=== PATIENT | male | born 1995 | race Hispanic/Latino ===

== ENCOUNTER 2019-03-07 16:56 | Emergency (ER) | payer OTHER, SELFPAY ==
[2019-03-07] MEDS ORDERED: FAMOTIDINE 20 MG/2 ML VIAL IV ONE (18:03)
[2019-03-07 18:10] LABS: Absolute Lymphocytes (CBC) 1.4 K/uL (0.7-4.9); Absolute Monocytes 0.8 K/uL (0.1-1.3); Basophils % 0.8 % (0-1.3); Eosinophils % 3.2 % (0-4.4); Hematocrit 43.2 % (39.6-49.0); MPV 10.4 fL (7.6-11.3); RBC Red Blood Cell Count 5.01 M/uL (4.33-5.43)
[2019-03-07] MEDS ORDERED: MORPHINE 4 MG/ML SYR ONE ×2 (18:16→19:30)
[2019-03-07] MEDS ORDERED: ONDANSETRON 4 MG/2 ML VIAL ONE (18:16)
[2019-03-07 18:34] LABS: ALT/SGPT 67 U/L (12-78); AST/SGOT 31 U/L (15-37); Alkaline Phosphatase 133 U/L (45-117); BUN Blood Urea Nitrogen 16 mg/dL (7-18); Bicarbonate 27 mmol/L (21-32); Bilirubin Direct 0.2 mg/dL (0-0.2); Bilirubin Total 1.1 mg/dL (0.2-1.0); Glucose Level 91 mg/dL (74-106); Lipase 85 U/L (73-393); Potassium 3.6 mmol/L (3.5-5.1); Protein, Total 7.9 g/dL (6.4-8.2); Sodium Level 140 mmol/L (136-145)
--- NOTE | 2019-03-07 19:57 | RAD REPORT ---
EXAM DESCRIPTION: US - Abdomen Exam Limited - 03/07/2019 7:19 pm CLINICAL HISTORY: Abdominal pain, epigastric pain COMPARISON: None. FINDINGS: No gallstones, sludge or other abnormalities within the gallbladder lumen. There is no wal l thickening or pericholecystic fluid. No common duct stone or biliary tree dilatation identified. Liver is probably fatty infiltrated but is not fully assessed. IMPRESSION: Normal gallbladder and biliary tree ultrasound. Suspected fatty infiltration. Liver is not fully assessed.
[2019-03-07 20:23] LABS: Urine Blood NEGATIVE (NEG); Urine Glucose NEGATIVE (NEG); Urine Protein NEGATIVE (NEG)
--- NOTE | 2019-03-07 20:45 | RAD REPORT ---
EXAM DESCRIPTION: CT - Abdomen Pelvis W Contrast - 03/07/2019 8:01 pm CLINICAL HISTORY: Abdominal pain, epigastric pain COMPARISON: None. TECHNIQUE: Biphasic, helical CT imaging of the abdomen and pelvis was performed following 100 ml non -ionic IV contrast. No oral contrast. All CT scans are performed using dose optimization technique as appropriate and may include automated exposure control or mA/KV adjustment according to patient size. FINDINGS: No suspicious findings in the lung bases. Liver shows a mild diffuse fatty infiltration pattern. No focal liver lesion. Spleen and pancreas silke w no suspicious findings. Gallbladder and biliary tree are also without suspicious finding. Gallstone s can be occult on CT imaging. Symmetric renal function is seen with no hydronephrosis or suspicious renal mass. No pyelonephritis o r acute parenchymal process. No bladder abnormalities. No adrenal abnormalities. No dilated bowel loops or bowel wall thickening. No appendicitis. No free air, free fluid or inflamma tory stranding. No hernia, mass or bulky lymphadenopathy. No suspicious bony findings. IMPRESSION: Contrast enhanced CT abdomen and pelvis showing no acute finding. Mild fatty infiltration of the liver.
--- NOTE | 2019-03-07 20:49 | EDPHYS ---
Physician Documentation [facility] Name: Holden Jovel Age: 24 yrs Sex: Male : 1995 Arrival Date: 03/07/2019 Time: 16:57 Bed 20 Private MD: ED Physician Domenic Silverio HPI: 03/07 20:22 This 24 yrs old Male presents to ER via Ambulatory with complaints of pm1 Epigastric Pain. 20:22 The patient presents with abdominal pain in the epigastric area. Onset: The pm1 symptoms/episode began/occurred yesterday. The symptoms do not radiate. Associated signs and symptoms: none. Pertinent negatives: nausea, vomiting, and diarrhea, chest pain, dysuria, fever, shortness of breath. The symptoms are described as achy, burning. Modifying factors: The symptoms are alleviated by nothing, the symptoms are aggravated by nothing. Severity of pain: in the emergency department the pain is actually worse. The patient has not experienced similar symptoms in the past. The patient has not recently seen a physician. Historical: - Allergies: 17:23 No Known Allergies; aj1 - Home Meds: 17:23 None [Active]; aj1 - PMHx: 17:23 None; aj1 - PSHx: 17:23 None; aj1 - Immunization history:: Flu vaccine is not up to date. - Social history:: Smoking status: Patient/guardian denies using tobacco. - Ebola Screening: : Patient denies travel to an Ebola-affected area in the 21 days before illness onset. ROS: 20:22 Constitutional: Negative for fever, chills, and weight loss, Eyes: Negative for injury, pm1 pain, redness, and discharge, ENT: Negative for injury, pain, and discharge, Neck: Negative for injury, pain, and swelling, Cardiovascular: Negative for chest pain, palpitations, and edema, Respiratory: Negative for shortness of breath, cough, wheezing, and pleuritic chest pain. 20:22 Back: Negative for injury and pain, : Negative for injury, bleeding, discharge, and swelling, MS/Extremity: Negative for injury and deformity, Skin: Negative for injury, rash, and discoloration, Neuro: Negative for headache, weakness, numbness, tingling, and seizure. 20:22 Abdomen/GI: Positive for abdominal pain, Negative for nausea, vomiting, and diarrhea. Exam: 20:22 Constitutional: This is a well developed, well nourished patient who is awake, alert, pm1 and in no acute distress. Head/Face: Normocephalic, atraumatic. Eyes: Pupils equal round and reactive to light, extra-ocular motions intact. Lids and lashes normal. Conjunctiva and sclera are non-icteric and not injected. Cornea within normal limits. Periorbital areas with no swelling, redness, or edema. ENT: Nares patent. No nasal discharge, no septal abnormalities noted. Tympanic membranes are normal and external auditory canals are clear. Oropharynx with no redness, swelling, or masses, exudates, or evidence of obstruction, uvula midline. Mucous membranes moist. Neck: Trachea midline, no thyromegaly or masses palpated, and no cervical lymphadenopathy. Supple, full range of motion without nuchal rigidity, or vertebral point tenderness. No Meningismus. Chest/axilla: Normal chest wall appearance and motion. Nontender with no deformity. No lesions are appreciated. Cardiovascular: Regular rate and rhythm with a normal S1 and S2. No gallops, murmurs, or rubs. Normal PMI, no JVD. No pulse deficits. Respiratory: Lungs have equal breath sounds bilaterally, clear to auscultation and percussion. No rales, rhonchi or wheezes noted. No increased work of breathing, no retractions or nasal flaring. 20:22 Back: No spinal tenderness. No costovertebral tenderness. Full range of motion. Skin: Warm, dry with normal turgor. Normal color with no rashes, no lesions, and no evidence of cellulitis. MS/ Extremity: Pulses equal, no cyanosis. Neurovascular intact. Full, normal range of motion. 20:22 Abdomen/GI: Inspection: obese Bowel sounds: normal, Palpation: soft, mild abdominal tenderness, in the epigastric area, mass, is not appreciated, rebound tenderness, is not appreciated. 20:22 Neuro: Orientation: is normal, Motor: is normal, Sensation: is normal, no obvious gross deficits. Vital Signs: 17:23 BP 149 / 76; Pulse 92; Resp 18; Temp 98.7; Pulse Ox 98% on R/A; Weight 140.61 kg (R); aj1 Height 5 ft. 9 in. (175.26 cm) (R); Pain 10/10; 18:04 BP 136 / 76; Pulse 80; Resp 18; Pulse Ox 97% on R/A; Pain 10/10; em 19:25 BP 130 / 74; Pulse 70; Resp 17 S; Pulse Ox 97% on R/A; cc3 20:25 BP 132 / 77; Pulse 75; Resp 17 S; Pulse Ox 97% on R/A; cc3 21:14 BP 128 / 73; Pulse 79; Resp 18 S; Pulse Ox 98% on R/A; cc3 17:23 Body Mass Index 45.78 (140.61 kg, 175.26 cm) aj1 MDM: 17:28 Patient medically screened. pm1 20:24 Data reviewed: vital signs. Data interpreted: Pulse oximetry: on room air is 97 %. pm1 Interpretation: normal. 20:47 Counseling: I had a detailed discussion with the patient and/or guardian regarding: the pm1 historical points, exam findings, and any diagnostic results supporting the discharge/admit diagnosis, lab results, radiology results, the need for outpatient follow up, to return to the emergency department if symptoms worsen or persist or if there are any questions or concerns that arise at home. 03/07 17:40 Order name: Basic Metabolic Panel; Complete Time: 18:44 pm1 03/07 17:40 Order name: CBC with Diff; Complete Time: 18:44 pm1 03/07 17:40 Order name: Creatinine for Radiology; Complete Time: 18:44 pm1 03/07 17:40 Order name: Hepatic Function; Complete Time: 18:44 pm1 03/07 17:40 Order name: Lipase; Complete Time: 18:44 pm1 03/07 20:20 Order name: Urine Dipstick--Ancillary (enter results); Complete Time: 20:24 mw2 03/07 17:40 Order name: IV Saline Lock; Complete Time: 18:02 pm1 03/07 17:40 Order name: US Abdomen Limited; Complete Time: 20:03 pm1 03/07 19:17 Order name: CT Abd/Pelvis - W/Contrast: Iv contrast only; Complete Time: 20:47 pm1 03/07 17:40 Order name: Labs collected and sent; Complete Time: 18:02 pm1 Administered Medications: 18:10 Drug: Pepcid 20 mg Route: IVP; Site: right antecubital; ss 18:54 Follow up: Response: No adverse reaction em 18:11 Drug: Zofran 4 mg Route: IVP; Site: right antecubital; ss 18:55 Follow up: Response: No adverse reaction em 18:13 Drug: morphine 4 mg Route: IVP; Site: right antecubital; ss 18:54 Follow up: Response: No adverse reaction; Pain is unchanged, physician notified em 19:20 Drug: morphine 4 mg Route: IVP; Site: right antecubital; cc3 20:09 Follow up: Response: No adverse reaction; Pain is unchanged, physician notified cc3 21:00 Drug: GI Cocktail without - (Maalox Suspension 30 ml, Lidocaine Liquid 2 % 15 cc3 ml) Route: PO; 21:15 Follow up: Response: No adverse reaction; Pain is decreased cc3 Disposition: 03/08 06:50 Co-signature as Attending Physician, Domenic Silverio MD I agree with the assessment and beryl plan of care. Disposition: 03/07/19 20:48 Discharged to Home. Impression: Unspecified abdominal pain. - Condition is Stable. - Discharge Instructions: Abdominal Pain, Adult. - Prescriptions for Pepcid 20 mg Oral Tablet - take 1 tablet by ORAL route every 12 hours for 10 days; 20 tablet. - Medication Reconciliation Form, Thank You Letter, Antibiotic Education, Prescription Opioid Use form. - Follow up: Emergency Department; When: As needed; Reason: Worsening of condition. Follow up: Private Physician; When: 2 - 3 days; Reason: Recheck today's complaints, Continuance of care, Re-evaluation by your physician. - Problem is new. - Symptoms have improved. Signatures: Dispatcher [employer] Vesta Trinidad RN RN ajDomenic Valentine MD MD cha Smirch, Shelby, RN RN Kiet Schaefer, ASP NET MVC DEVELOPER ASP NET MVC DEVELOPER pm1 Phuong Ratliff cc3 Ilan Morris TELEVISION ANNOUNCER em Corrections: (The following items were deleted from the chart) 03/07 21:15 20:48 03/07/2019 20:48 Discharged to Home. Impression: Unspecified abdominal pain. cc3 Condition is Stable. Forms are Medication Reconciliation Form, Thank You Letter, Antibiotic Education, Prescription Opioid Use. Follow up: Emergency Department; When: As needed; Reason: Worsening of condition. Follow up: Private Physician; When: 2 - 3 days; Reason: Recheck today's complaints, Continuance of care, Re-evaluation by your physician. Problem is new. Symptoms have improved. pm1
--- NOTE | 2019-03-07 20:49 | ER ---
Nurse's Notes [facility] Name: Holden Jovel Age: 24 yrs Sex: Male : 1995 Arrival Date: 03/07/2019 Time: 16:57 Bed 20 Private MD: Diagnosis: Unspecified abdominal pain Presentation: 03/07 17:21 Presenting complaint: Patient states: epigastric pain that's worse when he takes a deep aj1 breath. Reports he has had this pain since early Friday morning. Denies N/V/D. Denies fever. Transition of care: patient was not received from another setting of care. Onset of symptoms was March 06, 2019. Risk Assessment: Do you want to hurt yourself or someone else? Patient reports no desire to harm self or others. Initial Sepsis Screen: Does the patient meet any 2 criteria? HR > 90 bpm. No. Patient's initial sepsis screen is negative. Does the patient have a suspected source of infection? Yes: Acute abdominal pain. Care prior to arrival: None. 17:21 Method Of Arrival: Ambulatory aj 17:21 Acuity: ZACKARY 3 aj1 Triage Assessment: 17:23 General: Appears in no apparent distress. comfortable, Behavior is calm, cooperative, aj1 appropriate for age. Pain: Complains of pain in epigastric area Pain currently is 10 out of 10 on a pain scale. Neuro: Level of Consciousness is awake, alert, obeys commands. Cardiovascular: Patient's skin is warm and dry. Respiratory: Airway is patent Respiratory effort is even, unlabored, Respiratory pattern is regular, symmetrical. GI: Reports upper abdominal pain, Patient currently denies diarrhea, nausea, vomiting. Historical: - Allergies: 17:23 No Known Allergies; aj1 - Home Meds: 17:23 None [Active]; aj1 - PMHx: 17:23 None; aj1 - PSHx: 17:23 None; aj1 - Immunization history:: Flu vaccine is not up to date. - Social history:: Smoking status: Patient/guardian denies using tobacco. - Ebola Screening: : Patient denies travel to an Ebola-affected area in the 21 days before illness onset. Screenin:45 Abuse screen: Denies threats or abuse. Nutritional screening: No deficits noted. em Tuberculosis screening: No symptoms or risk factors identified. Fall Risk None identified. Assessment: 17:50 General: Appears in no apparent distress. comfortable, Behavior is calm, cooperative, em Denies fever. Pain: Complains of pain in epigastric area and right upper quadrant Pain currently is 10 out of 10 on a pain scale. Pain began 1 day ago. Neuro: Level of Consciousness is awake, alert, obeys commands, Oriented to person, place, time, situation. Cardiovascular: Capillary refill < 3 seconds Patient's skin is warm and dry. Respiratory: Airway is patent Respiratory effort is even, unlabored, Respiratory pattern is regular, symmetrical. GI: Abdomen is round non-distended, Bowel sounds present X 4 quads. Abd is soft X 4 quads Abdomen is tender to palpation in right upper quadrant Patient currently denies nausea, vomiting. Derm: Skin is intact, is healthy with good turgor, Skin is pink, warm \T\ dry. Musculoskeletal: Capillary refill < 3 seconds, Range of motion: intact in all extremities. 17:55 General: The previous assessment is accurate, call light remains within reach. 19:10 Reassessment: Patient appears in no apparent distress at this time. Patient and/or cc3 family updated on plan of care and expected duration. Pain level reassessed. Patient is alert, oriented x 3, equal unlabored respirations, skin warm/dry/pink. Received this male patient from morning shift [facility] as a case of epigastric pain. With IV cannula gauge 20 at the right ACV saline locked. 20:08 Reassessment: Patient appears in no apparent distress at this time. Patient and/or cc3 family updated on plan of care and expected duration. Pain level reassessed. Patient is alert, oriented x 3, equal unlabored respirations, skin warm/dry/pink. Patient came back from CT scan department, awaiting result. Patient states he is still having epigastric pain despite the medicines that were given, ULICES Vigil informed. 21:15 Reassessment: Patient appears in no apparent distress at this time. Patient and/or cc3 family updated on plan of care and expected duration. Pain level reassessed. Patient is alert, oriented x 3, equal unlabored respirations, skin warm/dry/pink. ULICES Vigil discharged the patient home with prescription given. IV cannula removed and patient left ER vitally stable and ambulatory with his family. Patient denies pain at this time. Patient states feeling better. Patient states symptoms have improved. Vital Signs: 17:23 BP 149 / 76; Pulse 92; Resp 18; Temp 98.7; Pulse Ox 98% on R/A; Weight 140.61 kg (R); aj1 Height 5 ft. 9 in. (175.26 cm) (R); Pain 10/10; 18:04 BP 136 / 76; Pulse 80; Resp 18; Pulse Ox 97% on R/A; Pain 10/10; em 19:25 BP 130 / 74; Pulse 70; Resp 17 S; Pulse Ox 97% on R/A; cc3 20:25 BP 132 / 77; Pulse 75; Resp 17 S; Pulse Ox 97% on R/A; cc3 21:14 BP 128 / 73; Pulse 79; Resp 18 S; Pulse Ox 98% on R/A; cc3 17:23 Body Mass Index 45.78 (140.61 kg, 175.26 cm) aj1 ED Course: 16:57 Patient arrived in ED. as 17:23 Triage completed. aj1 17:23 Arm band placed on Patient placed in an exam room. aj1 17:26 Kiet Vigil, ULICES is PHCP. pm1 17:26 Domenic Silverio MD is Attending Physician. pm1 17:31 Ilan Morris LVN is Primary Nurse. em 17:45 Patient has correct armband on for positive identification. Placed in gown. Bed in low em position. Call light in reach. Pulse ox on. NIBP on. 18:02 Initial lab(s) drawn, by me, sent to lab. Inserted saline lock: 20 gauge in right lt1 antecubital area, using aseptic technique. 18:52 Ultrasound completed. Patient tolerated well. sg3 19:19 US Abdomen Limited In Process Unspecified. EDMS 20:00 CT completed. Patient tolerated procedure well. Patient moved back from CT. kw1 20:01 CT Abd/Pelvis - W/Contrast: Iv contrast only In Process Unspecified. EDMS 21:14 No provider procedures requiring assistance completed. IV discontinued, intact, cc3 bleeding controlled, No redness/swelling at site. Pressure dressing applied. Administered Medications: 18:10 Drug: Pepcid 20 mg Route: IVP; Site: right antecubital; ss 18:54 Follow up: Response: No adverse reaction em 18:11 Drug: Zofran 4 mg Route: IVP; Site: right antecubital; ss 18:55 Follow up: Response: No adverse reaction em 18:13 Drug: morphine 4 mg Route: IVP; Site: right antecubital; ss 18:54 Follow up: Response: No adverse reaction; Pain is unchanged, physician notified em 19:20 Drug: morphine 4 mg Route: IVP; Site: right antecubital; cc3 20:09 Follow up: Response: No adverse reaction; Pain is unchanged, physician notified cc3 21:00 Drug: GI Cocktail without - (Maalox Suspension 30 ml, Lidocaine Liquid 2 % 15 cc3 ml) Route: PO; 21:15 Follow up: Response: No adverse reaction; Pain is decreased cc3 Outcome: 20:48 Discharge ordered by MD. pm1 21:14 Discharged to home ambulatory, with family. cc3 21:14 Condition: stable 21:14 Discharge instructions given to patient, family, Instructed on discharge instructions, follow up and referral plans. medication usage, Demonstrated understanding of instructions, follow-up care, medications, Prescriptions given X 1. 21:15 Patient left the ED. cc3 Signatures: Dispatcher [employer] Vesta Trinidad RN RN aj1 Ilan Morris, PURCHASING DEPARTMENT CLERK PURCHASING DEPARTMENT CLERK Prachi Rivas Shelby, RN RN ss Marinas, Patrick, NP COMBINING MACHINE OPERATOR pm1 Abigail Winslow kw1 Loida Fowler sg3 Phuong Ratliff cc3 Urbano, Kristina lt1 Corrections: (The following items were deleted from the chart) 22:23 21:15 Reassessment: Patient appears in no apparent distress at this time. Patient cc3 and/or family updated on plan of care and expected duration. Pain level reassessed. Patient is alert, oriented x 3, equal unlabored respirations, skin warm/dry/pink. ULICES Vigil discharged cc3
[2019-03-07] MEDS ORDERED: MAGNE/ALUM HYDROXD 30 ML UCUP ONE (21:16)
[2019-03-07] MEDS ORDERED: LIDOCAINE VISCOUS 2% SOLN 15 ML UDC ONE (21:16)
[2019-03-07 21:25] VITALS: TEMP 98.7
[2019-03-07 21:26] VITALS: O2SAT 97
[2019-03-07 21:28] VITALS: BP 130/74
== END 2019-03-07 21:15 | disposition home or self-care (01) ==
LOC: ER 16:56
DX: R10.13 Epigastric pain (principal)
CPT/HCPCS: 36415; 74177; 76705; 80048; 80076; 81003; 83690; 85025; 96374; 96375; 99284; J2405; Q9967

== ENCOUNTER 2020-02-11 02:51 | Emergency (ER) | payer SELFPAY ==
--- NOTE | 2020-02-11 03:46 | EDPHYS ---
Physician Documentation [facility] Name: Holden Jovel Age: 24 yrs Sex: Male : 1995 Arrival Date: 02/11/2020 Time: 02:57 Bed 6 Private MD: ED Physician Shawn Cruz HPI: 02/10 03:44 This 24 yrs old Male presents to ER via EMS with complaints of unable to sleep ma2 . 03:44 Onset: The symptoms/episode began/occurred gradually, 5 day(s) ago. Associated signs ma2 and symptoms: Pertinent negatives: agitation, blurred vision, combativeness, diaphoresis. The patient has not experienced similar symptoms in the past. Historical: - Allergies: 02:55 No Known Allergies; rr5 - Home Meds: 02:55 Eye Drops ophthalmic [Active]; rr5 - PMHx: 02:55 None; rr5 - PSHx: 02:55 lasik surgery; rr5 - Immunization history:: Adult Immunizations up to date. - Social history:: Smoking status: unknown Patient uses alcohol, occasionally. Patient/guardian denies using street drugs, tobacco products, Patient/guardian denies using alcohol, The patient lives with family. - Family history:: not pertinent. ROS: 03:44 Constitutional: Negative for fever, chills, and weight loss. ma2 03:44 All other systems are negative. Exam: 03:44 Constitutional: This is a well developed, well nourished patient who is awake, alert, ma2 and in no acute distress. Chest/axilla: Normal chest wall appearance and motion. Nontender with no deformity. No lesions are appreciated. Cardiovascular: Regular rate and rhythm with a normal S1 and S2. No gallops, murmurs, or rubs. Normal PMI, no JVD. No pulse deficits. Respiratory: Lungs have equal breath sounds bilaterally, clear to auscultation and percussion. No rales, rhonchi or wheezes noted. No increased work of breathing, no retractions or nasal flaring. Abdomen/GI: Soft, non-tender, with normal bowel sounds. No distension or tympany. No guarding or rebound. No evidence of tenderness throughout. Back: No spinal tenderness. No costovertebral tenderness. Full range of motion. Skin: Warm, dry with normal turgor. Normal color with no rashes, no lesions, and no evidence of cellulitis. MS/ Extremity: Pulses equal, no cyanosis. Neurovascular intact. Full, normal range of motion. Neuro: Awake and alert, GCS 15, oriented to person, place, time, and situation. Cranial nerves II-XII grossly intact. Motor strength 5/5 in all extremities. Sensory grossly intact. Cerebellar exam normal. Normal gait. Psych: Awake, alert, with orientation to person, place and time. Behavior, mood, and affect are within normal limits. Vital Signs: 02:50 BP 143 / 103; Pulse 103; Resp 20; Temp 97.7; Pulse Ox 100% ; Weight 140.61 kg; Height 5 rr5 ft. 9 in. (175.26 cm); Pain 0/10; 03:47 BP 141 / 95; Pulse 95; Resp 19; Pulse Ox 98% ; rr5 03:56 BP 137 / 75; Pulse 90; Resp 17; Temp 97.5; Pulse Ox 99% ; rr5 02:50 Body Mass Index 45.78 (140.61 kg, 175.26 cm) rr5 Viviane Coma Score: 03:00 Eye Response: spontaneous(4). Verbal Response: oriented(5). Motor Response: obeys rr5 commands(6). Total: 15. MDM: 02:57 Patient medically screened. ma2 03:44 Differential Diagnosis: schezophrenia, depression, anxiety, panic attack . Data ma2 reviewed: vital signs, nurses notes. Counseling: I had a detailed discussion with the patient and/or guardian regarding: the historical points, exam findings, and any diagnostic results supporting the discharge/admit diagnosis, the presence of at least one elevated blood pressure reading (>120/80) during this emergency department visit, the need for outpatient follow up. Response to treatment: the patient's symptoms have markedly improved after treatment. Administered Medications: 03:45 Drug: Ativan 2 mg Route: PO; rr5 04:00 Follow up: Response: Medication administered at discharge. rr5 Disposition: 02/11/20 03:46 Discharged to Home. Impression: Insomnia. - Condition is Stable. - Prescriptions for Ativan 2 mg Oral Tablet - take 1 tablet by ORAL route every 8 hours As needed; 10 tablet. - Medication Reconciliation Form, Thank You Letter, Antibiotic Education, Prescription Opioid Use form. - Follow up: Private Physician; When: Tomorrow; Reason: Recheck today's complaints, Continuance of care. Signatures: Shawn Cruz MD MD ma2 Aditya Vee RN RN rr5 Corrections: (The following items were deleted from the chart) 04:08 03:46 02/11/2020 03:46 Discharged to Home. Impression: Insomnia. Condition is Stable. rr5 Forms are Medication Reconciliation Form, Thank You Letter, Antibiotic Education, Prescription Opioid Use. Follow up: Private Physician; When: Tomorrow; Reason: Recheck today's complaints, Continuance of care. ma2
--- NOTE | 2020-02-11 03:46 | ER ---
Nurse's Notes [facility] Name: Holden Jovel Age: 24 yrs Sex: Male : 1995 Arrival Date: 02/11/2020 Time: 02:57 Bed 6 Private MD: Diagnosis: Insomnia Presentation: 02/10 02:50 Chief complaint: EMS states: family member reported he is acting crazy, strange. rr5 patient did not sleep for 5 days he always said "I just need to sleep, I just need to sleep".melatonin and Benadryl given but no effect. patient denies harming self and others. he is calm, alert and oriented. 02:50 Coronavirus screen: Proceed with normal triage. Ebola Screen: Patient negative for rr5 fever greater than or equal to 101.5 degrees Fahrenheit, and additional compatible Ebola Virus Disease symptoms Patient denies exposure to infectious person. Patient denies travel to an Ebola-affected area in the 21 days before illness onset. Initial Sepsis Screen: Does the patient meet any 2 criteria? No. Patient's initial sepsis screen is negative. Does the patient have a suspected source of infection? No. Patient's initial sepsis screen is negative. Risk Assessment: Do you want to hurt yourself or someone else? Patient reports no desire to harm self or others. Onset of symptoms was February 11, 2020. Care prior to arrival: Medication(s) given: meltonin, benadryl, xanax. 02:50 Method Of Arrival: EMS: [facility] rr5 02:50 Acuity: ZACKARY 2 rr5 02:50 Note patient stated I have 2 beers today and xanax took yesterday. rr5 Historical: - Allergies: 02:55 No Known Allergies; rr5 - Home Meds: 02:55 Eye Drops ophthalmic [Active]; rr5 - PMHx: 02:55 None; rr5 - PSHx: 02:55 lasik surgery; rr5 - Immunization history:: Adult Immunizations up to date. - Social history:: Smoking status: unknown Patient uses alcohol, occasionally. Patient/guardian denies using street drugs, tobacco products, Patient/guardian denies using alcohol, The patient lives with family. - Family history:: not pertinent. Screenin:00 Abuse screen: Denies threats or abuse. Denies injuries from another. Nutritional rr5 screening: No deficits noted. Tuberculosis screening: No symptoms or risk factors identified. Fall Risk None identified. Total Butler Fall Scale indicates No Risk (0-24 pts). Assessment: 03:00 General: Appears in no apparent distress. comfortable, Behavior is calm, cooperative, rr5 appropriate for age, Reports I want to sleep. I don't know what they (family member) are saying I am okay. Pain: Denies pain. Neuro: Level of Consciousness is awake, alert, obeys commands, Oriented to person, place, time, situation. Cardiovascular: Capillary refill < 3 seconds Patient's skin is warm and dry. Respiratory: Airway is patent Respiratory effort is even, unlabored, Respiratory pattern is regular, symmetrical. GI: No signs and/or symptoms were reported involving the gastrointestinal system. : No signs and/or symptoms were reported regarding the genitourinary system. EENT: No signs and/or symptoms were reported regarding the EENT system. Derm: Skin is intact, is healthy with good turgor, Skin temperature is warm. Musculoskeletal: Circulation, motion, and sensation intact. Capillary refill < 3 seconds. 03:23 Reassessment: 's number [id number] juloi. rr5 03:40 Reassessment: patient called his and keep on saying he want to go now and pick him rr5 up. ED provider aware patient wants to go now, with order to discharge. 03:56 Reassessment: Patient appears in no apparent distress at this time. Patient is alert, rr5 oriented x 3, equal unlabored respirations, skin warm/dry/pink. spoke to patients for the transport going home. 04:00 Reassessment: Patient appears in no apparent distress at this time. Patient is alert, rr5 oriented x 3, equal unlabored respirations, skin warm/dry/pink. discharge instruction given and explained without complaints made. accompanied by jeff CARRILLO to his in the lobby. Vital Signs: 02:50 BP 143 / 103; Pulse 103; Resp 20; Temp 97.7; Pulse Ox 100% ; Weight 140.61 kg; Height 5 rr5 ft. 9 in. (175.26 cm); Pain 0/10; 03:47 BP 141 / 95; Pulse 95; Resp 19; Pulse Ox 98% ; rr5 03:56 BP 137 / 75; Pulse 90; Resp 17; Temp 97.5; Pulse Ox 99% ; rr5 02:50 Body Mass Index 45.78 (140.61 kg, 175.26 cm) rr5 [place] Coma Score: 03:00 Eye Response: spontaneous(4). Verbal Response: oriented(5). Motor Response: obeys rr5 commands(6). Total: 15. ED Course: 02:57 Patient arrived in ED. ds1 02:57 Shawn Cruz MD is Attending Physician. ma2 03:00 Arm band placed on right wrist. rr5 03:00 Patient has correct armband on for positive identification. Bed in low position. Call rr5 light in reach. Pulse ox on. NIBP on. 03:00 No provider procedures requiring assistance completed. rr5 03:02 Aditya Vee, GERARDO is Primary Nurse. rr5 03:14 Triage completed. rr5 03:57 Patient did not have IV access during this emergency room visit. rr5 Administered Medications: 03:45 Drug: Ativan 2 mg Route: PO; rr5 04:00 Follow up: Response: Medication administered at discharge. rr5 Outcome: 03:46 Discharge ordered by . ma2 03:57 Discharged to home ambulatory. rr5 03:57 Condition: stable 03:57 Discharge instructions given to patient, Instructed on discharge instructions, follow up and referral plans. medication usage, Demonstrated understanding of instructions, follow-up care, medications, Prescriptions given X 1. 04:08 Patient left the ED. rr5 Signatures: Arianna Joyner ds1 Shawn Cruz MD MD ma2 Aditya Vee, RN RN rr5
[2020-02-11] MEDS ORDERED: LORAZEPAM 1 MG TABLET ONE (03:51)
[2020-02-11 04:16] VITALS: BP 137/75; TEMP 97.5; O2SAT 99
== END 2020-02-11 04:08 | disposition home or self-care (01) ==
LOC: ER 02:51
DX: G47.00 Insomnia, unspecified (principal)
CPT/HCPCS: 99284

== ENCOUNTER 2020-02-11 21:08 | Emergency (ER) | payer SELFPAY ==
[2020-02-11] MEDS ORDERED: NA CHLORIDE 0.9% 1,000 ML ONE ×2 (21:52→21:59)
[2020-02-11 23:04] LABS: Barbiturates NEGATIVE (NEGATIVE); Benzodiazepines NEGATIVE (NEGATIVE); Cocaine NEGATIVE (NEGATIVE); METHAMPHETAM NEGATIVE (NEGATIVE); Methadone NEGATIVE (NEGATIVE); Opiates NEGATIVE (NEGATIVE); Phencyclidine NEGATIVE (NEGATIVE); THC Cannibis NEGATIVE (NEGATIVE)
[2020-02-11 23:11] LABS: Urine Blood NEGATIVE (NEG); Urine Glucose NEGATIVE (NEG); Urine Protein NEGATIVE (NEG)
[2020-02-11 23:14] LABS: Absolute Lymphocytes (CBC) 2.3 K/uL (0.7-4.9); Basophils % 1.1 % (0-1.3); Hematocrit 45.4 % (39.6-49.0); Lymphocytes % 20.2 % (15.3-44.8); MPV 10.9 fL (7.6-11.3); RBC Red Blood Cell Count 5.31 M/uL (4.33-5.43)
[2020-02-12 00:15] LABS: ALT/SGPT 94 U/L (12-78); AST/SGOT 62 U/L (15-37); Albumin 4.3 g/dL (3.4-5.0); Alkaline Phosphatase 113 U/L (45-117); BUN Blood Urea Nitrogen 11 mg/dL (7-18); Bicarbonate 26 mmol/L (21-32); Bilirubin Direct 0.2 mg/dL (0-0.2); Glucose Level 144 mg/dL (74-106); Potassium 3.4 mmol/L (3.5-5.1); Protein, Total 8.4 g/dL (6.4-8.2); Sodium Level 139 mmol/L (136-145)
--- NOTE | 2020-02-12 00:50 | EDPHYS ---
[facility] Name: Holden Jovel Age: 24 yrs Sex: Male : 1995 Arrival Date: 02/11/2020 Time: 21:09 Bed 2 Private MD: ED Physician Domenic Silverio HPI: 02/10 22:36 This 24 yrs old Male presents to ER via Ambulatory with complaints of Unable beryl to Sleep, Altered Mental Status. 22:36 The patient presents with trouble concentrating. beryl 22:40 The patient presents to the emergency department with paranoia. Onset: The beryl symptoms/episode began/occurred 1 week(s) ago. Past psychiatric history: Prior diagnosis: no previous psychiatric diagnosis known, Psychiatric medications include: none. Possible causes: unknown. Associated signs and symptoms: Pertinent positives: agitation, combativeness, Pertinent negatives: abdominal pain, diaphoresis, diarrhea, dizziness, headache, lightheadedness. Patient's baseline: Neuro: alert and fully oriented. Historical: - Allergies: 21:47 Unable to obtain; bb - Immunization history:: Adult Immunizations unknown. - Social history:: Smoking status: unknown. - Family history:: not pertinent. ROS: 22:40 Constitutional: Negative for fever, chills, and weight loss, Eyes: Negative for injury, beryl pain, redness, and discharge, ENT: Negative for injury, pain, and discharge, Neck: Negative for injury, pain, and swelling, Cardiovascular: Negative for chest pain, palpitations, and edema, Respiratory: Negative for shortness of breath, cough, wheezing, and pleuritic chest pain, Abdomen/GI: Negative for abdominal pain, nausea, vomiting, diarrhea, and constipation, Back: Negative for injury and pain, : Negative for injury, bleeding, discharge, and swelling, MS/Extremity: Negative for injury and deformity, Skin: Negative for injury, rash, and discoloration, Neuro: Negative for headache, weakness, numbness, tingling, and seizure, Allergy/Immunology: Negative for hives, rash, and allergies, Endocrine: Negative for neck swelling, polydipsia, polyuria, polyphagia, and marked weight changes, Hematologic/Lymphatic: Negative for swollen nodes, abnormal bleeding, and unusual bruising. 22:40 Psych: Positive for anxiety. Exam: 22:40 Constitutional: This is a well developed, well nourished patient who is awake, alert, beryl and in no acute distress. Head/Face: Normocephalic, atraumatic. Eyes: Pupils equal round and reactive to light, extra-ocular motions intact. Lids and lashes normal. Conjunctiva and sclera are non-icteric and not injected. Cornea within normal limits. Periorbital areas with no swelling, redness, or edema. ENT: Nares patent. No nasal discharge, no septal abnormalities noted. Tympanic membranes are normal and external auditory canals are clear. Oropharynx with no redness, swelling, or masses, exudates, or evidence of obstruction, uvula midline. Mucous membranes moist. Neck: Trachea midline, no thyromegaly or masses palpated, and no cervical lymphadenopathy. Supple, full range of motion without nuchal rigidity, or vertebral point tenderness. No Meningismus. Chest/axilla: Normal chest wall appearance and motion. Nontender with no deformity. No lesions are appreciated. Cardiovascular: Regular rate and rhythm with a normal S1 and S2. No gallops, murmurs, or rubs. Normal PMI, no JVD. No pulse deficits. Respiratory: Lungs have equal breath sounds bilaterally, clear to auscultation and percussion. No rales, rhonchi or wheezes noted. No increased work of breathing, no retractions or nasal flaring. Abdomen/GI: Soft, non-tender, with normal bowel sounds. No distension or tympany. No guarding or rebound. No evidence of tenderness throughout. Back: No spinal tenderness. No costovertebral tenderness. Full range of motion. Male : Normal genitalia with no discharge or lesions. Skin: Warm, dry with normal turgor. Normal color with no rashes, no lesions, and no evidence of cellulitis. MS/ Extremity: Pulses equal, no cyanosis. Neurovascular intact. Full, normal range of motion. Neuro: Awake and alert, GCS 15, oriented to person, place, time, and situation. Cranial nerves II-XII grossly intact. Motor strength 5/5 in all extremities. Sensory grossly intact. Cerebellar exam normal. Normal gait. 22:40 Psych: Behavior/mood is anxious, Affect is calm, Oriented to person, place, time, Patient has no thoughts/intents to harm self or others. Judgement / Insight is impaired. Memory is normal. Delusions/hallucinations are present and described as people talking about him, sticking tongues out under mask. Vital Signs: 21:42 BP 146 / 89; Pulse 102; Resp 16 S; Temp 98.2(O); Pulse Ox 98% on R/A; Weight 142.88 kg bb (R); Height 5 ft. 9 in. (175.26 cm) (R); Pain 0/10; 22:00 BP 155 / 86; Pulse 99; Pulse Ox 97% on R/A; vc 02/11 00:00 BP 144 / 103; Pulse 109; Pulse Ox 99% on R/A; vc 02/10 21:42 Body Mass Index 46.52 (142.88 kg, 175.26 cm) bb MDM: 02/10 21:37 Patient medically screened. [facility] 22:44 Data reviewed: vital signs, nurses notes, lab test result(s), EKG. [facility] 02/10 21:37 Order name: Acetaminophen; Complete Time: 00:23 [facility] 02/10 21:37 Order name: Basic Metabolic Panel; Complete Time: 00:23 [facility] 02/10 21:37 Order name: CBC with Diff; Complete Time: 23:41 [facility] 02/10 21:37 Order name: ETOH Level; Complete Time: 23:41 [facility] 02/10 21:37 Order name: Hepatic Function; Complete Time: 00:23 [facility] 02/10 21:37 Order name: PT-INR; Complete Time: 23:58 [facility] 02/10 21:37 Order name: Ptt, Activated; Complete Time: 23:58 [facility] 02/10 21:37 Order name: Salicylate; Complete Time: 23:41 [facility] 02/10 21:37 Order name: Urine Drug Screen; Complete Time: 23:41 [facility] 02/10 21:37 Order name: TSH; Complete Time: 00:23 [facility] 02/10 22:40 Order name: Urine Dipstick--Ancillary (enter results); Complete Time: 23:41 2 02/10 21:37 Order name: EKG; Complete Time: 21:59 [facility] 02/10 21:37 Order name: EKG - Nurse/Tech; Complete Time: 22:04 [facility] 02/10 21:37 Order name: IV Saline Lock; Complete Time: 23:33 [facility] 02/10 21:37 Order name: Labs collected and sent; Complete Time: 23:33 [facility] 02/10 21:37 Order name: Urine Dipstick-Ancillary (obtain specimen); Complete Time: 23:33 [facility] 02/11 00:24 Order name: PO challenge; Complete Time: :34 [facility] Administered Medications: 02/11 00:34 Not Given (Patient Refused): NS 0.9% 1000 ml IV at 1 bolus Per protocol; 1000 mL bolus vc 01:10 Not Given (Patient left AMA): Restoril 30 mg PO once vc 01:10 Not Given (Patient left AMA): Ativan 1 mg IVP once vc Disposition: 02/12/20 00:49 Discharged to Home. Impression: Insomnia, unspecified. - Condition is Stable. - Discharge Instructions: Insomnia, Paranoia, Schizophrenia. - Prescriptions for Restoril 30 mg Oral capsule - take 1 capsule by ORAL route once daily at bedtime as needed; 7 capsule. - Medication Reconciliation Form, Thank You Letter, Antibiotic Education, Prescription Opioid Use form. - Follow up: Private Physician; When: 2 - 3 days; Reason: Recheck today's complaints, Continuance of care, Re-evaluation by your physician. Follow up: Ye Tafoya MD; When: 2 - 3 days; Reason: Recheck today's complaints, Re-evaluation by your physician. - Problem is new. - Symptoms have improved. Signatures: Dispatcher [employer] EDMS Domenic Silverio MD MD cha Ballard, Brenda, RN RN bb Angelica Partida RN RN vc Corrections: (The following items were deleted from the chart) 00:50 00:49 02/12/2020 00:49 Discharged to Home. Impression: Insomnia, unspecified. Condition beryl is Stable. Forms are Medication Reconciliation Form, Thank You Letter, Antibiotic Education, Prescription Opioid Use. Follow up: Private Physician; When: 2 - 3 days; Reason: Recheck today's complaints, Continuance of care, Re-evaluation by your physician. Problem is new. Symptoms have improved. beryl 01:24 00:50 02/12/2020 00:49 Discharged to Home. Impression: Insomnia, unspecified. Condition vc is Stable. Forms are Medication Reconciliation Form, Thank You Letter, Antibiotic Education, Prescription Opioid Use. Follow up: Private Physician; When: 2 - 3 days; Reason: Recheck today's complaints, Continuance of care, Re-evaluation by your physician. Follow up: Ye Tafoya; When: 2 - 3 days; Reason: Recheck today's complaints, Re-evaluation by your physician. Problem is new. Symptoms have improved. beryl
--- NOTE | 2020-02-12 00:50 | ER ---
Nurse's Notes [facility] Name: Holden Jovel Age: 24 yrs Sex: Male : 1995 Arrival Date: 02/11/2020 Time: 21:09 Bed 2 Private MD: Diagnosis: Insomnia, unspecified Presentation: 02/10 21:42 Chief complaint: Patient states: he doesn't know why he is here his family made him bb come but he continues to state I can't sleep pt was seen here last night and given RX for ativan. Coronavirus screen: Proceed with normal triage. Ebola Screen: No symptoms or risks identified at this time. Initial Sepsis Screen: Does the patient meet any 2 criteria? No. Patient's initial sepsis screen is negative. Does the patient have a suspected source of infection? No. Patient's initial sepsis screen is negative. Risk Assessment: Do you want to hurt yourself or someone else? Patient reports no desire to harm self or others. Onset of symptoms is unknown. 21:42 Method Of Arrival: Ambulatory bb 21:42 Acuity: ZACKARY 2 bb Historical: - Allergies: 21:47 Unable to obtain; bb - Immunization history:: Adult Immunizations unknown. - Social history:: Smoking status: unknown. - Family history:: not pertinent. Screenin:00 Abuse screen: Denies threats or abuse. vc 22:00 Nutritional screening: No deficits noted. Tuberculosis screening: No symptoms or risk vc factors identified. Fall Risk None identified. Assessment: 22:00 General: Appears in no apparent distress. uncomfortable, Behavior is calm, cooperative, vc appropriate for age. Pain: Denies pain. Neuro: Level of Consciousness is awake, alert, obeys commands, confused, Oriented to person. Neuro: Neuro: Reports "I have not been able to sleep in days, my family thinks I'm crazy and I'm starting to think I'm crazy". Cardiovascular: Capillary refill < 3 seconds Patient's skin is warm and dry. Respiratory: Airway is patent Respiratory effort is even, unlabored, Respiratory pattern is regular, symmetrical. GI: No signs and/or symptoms were reported involving the gastrointestinal system. : No signs and/or symptoms were reported regarding the genitourinary system. EENT: No signs and/or symptoms were reported regarding the EENT system. Derm: No signs and/or symptoms reported regarding the dermatologic system. Musculoskeletal: Circulation, motion, and sensation intact. Range of motion: intact in all extremities. 22:30 Reassessment: Patient will not allow me to start IV. He states, " I know ya'll are up vc to something." Will try again. 23:00 Reassessment: While placing IV in patient he asks,"did you just put a chip in me?". vc 02/11 00:23 Reassessment: Patient appears in no apparent distress at this time. Patient and/or vc family updated on plan of care and expected duration. Pain level reassessed. 00:37 Reassessment: Patient appears in no apparent distress at this time. Patient and/or vc family updated on plan of care and expected duration. Pain level reassessed. Patient states he has no thought of self harm. 01:00 Reassessment: Patient became anxious and refused to stay in room, explained to patient vc that he is not allowed to stay in the [address] for other patients privacy. Patient refused to go back in room. Vital Signs: 02/10 21:42 BP 146 / 89; Pulse 102; Resp 16 S; Temp 98.2(O); Pulse Ox 98% on R/A; Weight 142.88 kg bb (R); Height 5 ft. 9 in. (175.26 cm) (R); Pain 0/10; 22:00 BP 155 / 86; Pulse 99; Pulse Ox 97% on R/A; vc 02/11 00:00 BP 144 / 103; Pulse 109; Pulse Ox 99% on R/A; vc 02/10 21:42 Body Mass Index 46.52 (142.88 kg, 175.26 cm) bb ED Course: 02/10 21:09 Patient arrived in ED. ds1 21:29 Domenic Silverio MD is Attending Physician. beryl 21:43 Angelica Partida RN is Primary Nurse. vc 21:46 Triage completed. bb 21:47 Arm band placed on Patient placed in an exam room, on a stretcher, on pulse oximetry. bb 02/11 00:35 Patient has correct armband on for positive identification. Bed in low position. vc 00:50 Ye Tafoya MD is Referral Physician. beryl Administered Medications: 00:34 Not Given (Patient Refused): NS 0.9% 1000 ml IV at 1 bolus Per protocol; 1000 mL bolus vc 01:10 Not Given (Patient left AMA): Restoril 30 mg PO once vc 01:10 Not Given (Patient left AMA): Ativan 1 mg IVP once vc Outcome: 00:49 Discharge ordered by MD. [place] 01:11 AMA Other [place] [facility] called pt uncooperative would not stay in his room pt refused bb medication and choose to leave signed AMA form pt accompanied to exit by this RN and left via POV with family 01:24 Patient left the ED. vc Signatures: Domenic Silverio MD MD cha Sanford, Demi ds1 Laura Cerna RN RN bb Angelica Partida RN RN vc Corrections: (The following items were deleted from the chart) 00:45 02/10 21:42 Acuity: ZACKARY 5 bb bb
[2020-02-12] MEDS ORDERED: LORazepam 2 MG/ML VIAL ONE (01:03)
[2020-02-12] MEDS ORDERED: TEMAZEPAM 15 MG CAP ONE (01:06)
[2020-02-12 01:36] VITALS: TEMP 98.2
[2020-02-12 01:38] VITALS: BP 144/103; O2SAT 99
--- NOTE | 2020-02-12 07:59 | EKG ---
Test Date: 2020-02-11 Test Time: 21:53:51 Alloy Weigher: SHAKEEL MEASUREMENT RESULTS: Intervals: Rate: 94 CA: 158 QRSD: 88 QT: 354 QTc: 442 [place]: P: 46 CA: 158 QRS: 71 T: 23 INTERPRETIVE STATEMENTS: Normal sinus rhythm Normal ECG Compared to ECG 08/27/2004 13:19:00 No significant changes Electronically Signed On 02-12-20 07:58:26 CDT by Boo [place]
== END 2020-02-12 01:24 | disposition home or self-care (01) ==
LOC: ER 21:08
DX: G47.00 Insomnia, unspecified (principal)
CPT/HCPCS: 36415; 80048; 80076; 80307; 80320; 80329; 81003; 84443; 85025; 85610; 85730; 93005; 99283; J7030